=== PATIENT | female | born 1960 | race Native Hawaiian/Other Pacific Islander ===

== ENCOUNTER 2021-07-03 09:34 | Outpatient (CLI) | payer OTHER | END 2021-07-03 19:27 | disposition home or self-care (01) | LOC: RESP 09:34 | PROVIDERS: ATTEND Orthopaedic Surgery | DX: M25.511 Pain in right shoulder (principal); M75.41 Impingement syndrome of right shoulder; M25.512 Pain in left shoulder; M75.42 Impingement syndrome of left shoulder; M75.101 Unspecified rotator cuff tear or rupture of right shoulder, not specified as traumatic; M75.102 Unspecified rotator cuff tear or rupture of left shoulder, not specified as traumatic; M19.011 Primary osteoarthritis, right shoulder; M19.012 Primary osteoarthritis, left shoulder | CPT/HCPCS: 95885; 95913 ==

== ENCOUNTER 2022-09-04 11:38 | Outpatient (CLI) | payer OTHER | END 2022-09-04 17:00 | disposition home or self-care (01) | LOC: RAD 11:38 | PROVIDERS: ATTEND Nurse Practitioner Family | DX: R06.02 Shortness of breath (principal) ==